=== PATIENT | female | born 1960 | race American Indian/Alaskan Native ===

== ENCOUNTER 2016-12-30 09:47 | Outpatient (CLI) | payer MEDICARE, OTHER ==
--- NOTE | 2016-12-30 16:07 | Mammography Report ---
BILATERAL DIGITAL SCREENING MAMMOGRAM with CAD : 12/30/16 09:47:00 CLINICAL: Routine screening. COMPARISON:12/31/15 FINDINGS: The breasts are heterogeneously dense, which may obscure small masses.Extensive bilateral benign calcifications with many vascular calcifications. No mass, architectural distortion or suspicious calcifications. IMPRESSION: No mammographic evidence of malignancy. BI-RADS CATEGORY: 2 -- Benign RECOMMENDATION: Routine mammographic screening in one year. COMMENT: Patient follow-up letters are generated by our [employer] application.
== END 2016-12-30 09:48 | disposition home or self-care (01) ==
LOC: SPVWC 09:47
PROVIDERS: ATTEND Family Medicine
DX: Z12.31 Encounter for screening mammogram for malignant neoplasm of breast (principal)
CPT/HCPCS: 77067; G0202

== ENCOUNTER 2017-08-06 10:28 | Emergency (ER) | payer MEDICARE, OTHER ==
--- NOTE | 2017-08-06 10:43 | Emergency Department Report ---
ED CPR HPI - General Stated Complaint: CARDIAC ARREST Time Seen by Provider: 08/06/17 10:39 - History of Present Illness Initial Comments: Mrs. Mcnamara has a history of end-stage renal disease, CHF, SLE who presents in cardiac arrest. She had a witnessed episode of syncope. Her told EMS that they were on the way to [facility]. She collapsed and became unresponsive in the garage. She had a procedure on yesterday for hemodialysis vascular access. She does receive scheduled hemodialysis. EMS inserted a Combitube. EMS performed ACLS for ventricular fibrillation which was the rhythm seen. Patient received epinephrine, amiodarone. Approximately 30-35 minutes of resuscitation performed by EMS. ED Review of Systems ROS: Stated complaint: CARDIAC ARREST Other details as noted in HPI Comment: Unobtainable due to pts medical conditions ED Physical Exam - General Limitations: Other (cardiac arrest, comatose state) General appearance: other (lifeless, comatose) - Head Head exam: Present: atraumatic, normocephalic - Eye Eye exam: Present: other (fixed dilated pupils) - ENT ENT exam: Present: other (facial edema, Combitube in place, tongue edema) - Neck Neck exam: Present: normal inspection, other (no edema) - Respiratory Respiratory exam: Present: other (no spontaneous breath sounds, coarse breath sounds with ventilation) - Cardiovascular Cardiovascular Exam: Present: other (no cardiac sounds on auscultation, chest left sided vascath) - GI/Abdominal GI/Abdominal exam: Present: soft, distended - Extremities Exam Extremities exam: Present: other (left forearm edematous Ulcer overlying Tegaderm, no deformities of the lower extremities) - Psychiatric Psychiatric exam: Present: other (nonverbal lifeless) - Skin Skin exam: Present: other (as per extremity exam, skin is cold to touch) ED Medical Decision Making - Medical Decision Making Mrs. Mcnamara presents in cardiac arrest. Ventricular fibrillation seen on bus monitor. Resuscitation ACLS algorithm with chest compressions continued. ROSC not achieved. Time of 1034. I informed at the bedside. PCP Dr. Ángel Polanco behavioral health consultant Critical Care Time: Yes Critical care time in (mins) excluding proc time.: 35 Critical care attestation.: If time is entered above; I have spent that time in minutes in the direct care of this critically ill patient, excluding procedure time. ED Disposition Clinical Impression: Cardiac arrest, SLE (systemic lupus erythematosus), ESRD (end stage renal disease) on dialysis Disposition: DC-20 Is pt being admited?: No Does the pt Need Aspirin: No Condition: Stable Time of Disposition: 10:34 (time of )
== END 2017-08-06 15:08 ==
LOC: ED 10:28
DX: I46.9 Cardiac arrest, cause unspecified (principal); M32.9 Systemic lupus erythematosus, unspecified; N18.6 End stage renal disease; Z99.2 Dependence on renal dialysis
CPT/HCPCS: 92950